=== PATIENT | male | born 1945 | race Caucasian/White ===

== ENCOUNTER 2020-04-14 14:14 | Outpatient (CLI) | payer MEDICARE, OTHER ==
--- NOTE | 2020-04-14 14:50 | RAD ---
2 VIEW CHEST: Date: 04/14/2020 INDICATION: Cough. COMPARISON: 02/19/2017. FINDINGS: There is cardiomegaly with vascular congestion. Interstitial prominence may represent mild diffuse in terstitial congestion. There is new opacification in the left lung base consistent with left effusion and left basilar atele ctasis or consolidation. There is a rounded mass-like density in the left infrahilar region which is new and concerning for parenchymal or hilar mass. IMPRESSION: 1. New opacification of left lung base and a rounded circumscribed mass density in the left infrahil ar region. 2. Mild vascular and interstitial congestion. Recommend further evaluation with chest CT with IV contrast. POS: AGW
== END 2020-04-14 14:15 | disposition home or self-care (01) ==
LOC: BICRAD 14:14
PROVIDERS: ATTEND Family Medicine
DX: R05 Cough (principal); J84.89 Other specified interstitial pulmonary diseases; J98.4 Other disorders of lung; R91.8 Other nonspecific abnormal finding of lung field
CPT/HCPCS: 36415; 71046; 80053; 85025; 85652

== ENCOUNTER 2020-04-28 14:42 | Outpatient (CLI) | payer MEDICARE, OTHER ==
[2020-04-29 04:28] LABS: SARS-CoV-2 MS2 Positive; SARS-CoV-2 N Gene Negative; SARS-CoV-2 S Gene Negative; SARS-CoV-2 by NAA Not Detected (NotDetected); SARS-CoV-2 orf1ab Negative
== END 2020-04-28 14:43 | disposition home or self-care (01) ==
LOC: LABBT 14:42
PROVIDERS: ATTEND Internal Medicine Critical Care Medicine
DX: Z01.812 Encounter for preprocedural laboratory examination (principal); R91.8 Other nonspecific abnormal finding of lung field; Z20.828 Contact with and (suspected) exposure to other viral communicable diseases
CPT/HCPCS: 87635; U0003

== ENCOUNTER 2020-05-02 06:38 | Day surgery (SDC) | payer MEDICARE, OTHER ==
[2020-04-29 13:21] VITALS: BMI 35.9
[2020-05-02] MEDS ORDERED: Lidocaine 1% (PF) 30 ML VIAL ONE ×2 (07:53→07:54)
[2020-05-02] MEDS ORDERED: Dexmedetomidine 200 MCG/2 ML VIAL ONE (09:28)
[2020-05-02] MEDS ORDERED: Morphine 4 MG/ML VIAL ONE (10:23)
--- NOTE | 2020-05-02 10:37 | OP ---
DATE OF PROCEDURE: 05/02/2020 PROCEDURE PERFORMED: Fiberoptic bronchoscopy. PREOPERATIVE DIAGNOSIS: Left upper lobe lung mass. POSTOPERATIVE DIAGNOSIS: Left upper lobe and left lower lobe lung mass. ANESTHESIA: General endotracheal. DESCRIPTION OF PROCEDURE: Informed consent was obtained prior to the procedure. The patient understood the risks involved and agreed to proceed. The patient was brought to the operating room. Time-out was taken prior to the procedure. The patient was intubated with an 8.5 endotracheal tube by KURT. The patient was placed under general endotracheal anesthesia. An Olympus bronchoscope was placed through an adapter into the patient's endotracheal tube while he was on volume-cycled ventilation. The patient's jigna was sharp. There were mucoid secretions present throughout his right lung. His right mainstem bronchus, right upper lobe, right middle lobe, and right lower lobe were free of endobronchial lesions. The left mainstem bronchus was clear up into the bifurcations of left upper lobe, left lower lobe. His left upper lobe was 100% obstructed by endobronchial tumor, which was fleshy, non-necrotic. His left lower lobe was difficult to assess because it was circumferentially narrowed and I could not pass the bronchoscope through that region. The left upper lobe endobronchial tumor was biopsied with forceps approximately 8 times. Brushing was also done. Washings were obtained. The patient had minimal bleeding as a result of the procedure. The patient tolerated the procedure well. This patient has stage IV cancer. Cell type unknown. He will need referral to Oncology for radiation and chemotherapy. Job ID: [id number]
[2020-05-02] MEDS ORDERED: Rocuronium Bromide 10 MG/ML (10ML VIAL) ONE (11:04)
[2020-05-02] MEDS ORDERED: PROPOFOL 200 MG/20 ML VIAL ONE (11:04)
[2020-05-02] MEDS ORDERED: Succinylcholine 200 MG/10 ml SYRINGE FS ONE (11:04)
[2020-05-02] MEDS ORDERED: Ondansetron PF 4 MG/2 ML Vial ONE (11:04)
[2020-05-02] MEDS ORDERED: Lidocaine 1% PF 5 ML VIAL ONE (11:04)
[2020-05-02] MEDS ORDERED: Dexamethasone 20 MG/5 ML VIAL ONE (11:04)
== END 2020-05-02 11:55 | disposition home or self-care (01) ==
LOC: SDC 06:38
PROVIDERS: ATTEND Internal Medicine Critical Care Medicine
PROC: 0BB88ZX Excision of Left Upper Lobe Bronchus, Via Natural or Artificial Opening Endoscopic, Diagnostic (ICD-10-PCS; principal; 2020-05-02)
PROC: 0BDG8ZX Extraction of Left Upper Lung Lobe, Via Natural or Artificial Opening Endoscopic, Diagnostic (ICD-10-PCS; 2020-05-02)
DX: C7A.8 Other malignant neuroendocrine tumors (principal); C80.1 Malignant (primary) neoplasm, unspecified; J44.9 Chronic obstructive pulmonary disease, unspecified; G47.33 Obstructive sleep apnea (adult) (pediatric); I48.91 Unspecified atrial fibrillation; I27.20 Pulmonary hypertension, unspecified; F17.210 Nicotine dependence, cigarettes, uncomplicated; Z79.01 Long term (current) use of anticoagulants; Z79.52 Long term (current) use of systemic steroids; Z79.899 Other long term (current) drug therapy
CPT/HCPCS: 88104; 88112; 88305; 88313; 88341; 88342; J1100; J2001; J2270; J2405; J2704

== ENCOUNTER 2020-05-12 08:09 | Outpatient (CLI) | payer MEDICARE, OTHER ==
--- NOTE | 2020-05-12 09:32 | MRI ---
MRI brain with and without contrast: DATE: 05/12/2020 HISTORY: 74-year-old male with lung cancer. Concern for intracranial metastasis. TECHNIQUE: Multiplanar, multisequence MRI of the brain obtained pre and post IV injection of gadolinium based co ntrast agent. FINDINGS: There is no obstructive hydrocephalus. There is no midline shift or any other evidence of mass effect . There is no extra-axial fluid collection. There are mild chronic ischemic white matter changes due to microvascular atherosclerosis. There is otherwise no major intra-axial signal abnormality, abn ormal enhancement, mass, recent hemorrhage, or restricted diffusion. There is a small, approximately 1 x 1.2 x 0.8 cm meningioma at the left cerebral convexity, abutting the left precentra l gyrus, without causing adjacent vasogenic edema. There is material that is isointense relative to brain parenchyma filling the entire sella turcica, with a superior suprasellar process that engulfs t he entire infundibular stalk, which abuts the optic chiasm. IMPRESSION: 1) enhancing sellar and suprasellar mass. Metastatic disease versus pituitary macroadenoma. Recommend further evaluation with dedicated MRI of the sella with and without contrast. 2) no intra-axial metastatic disease. 3) small meningioma over left cerebral convexity. 4) mild chronic ischemic white matter changes.
[2020-05-12] MEDS ORDERED: Magnevist 469MG/ML 20 ML VIAL ONE (13:53)
== END 2020-05-12 08:10 | disposition home or self-care (01) ==
LOC: MRI 08:09
PROVIDERS: ATTEND Internal Medicine Hematology & Oncology
DX: C34.12 Malignant neoplasm of upper lobe, left bronchus or lung (principal); D32.0 Benign neoplasm of cerebral meninges; I67.82 Cerebral ischemia
CPT/HCPCS: 70553; A9579

== ENCOUNTER 2020-05-12 18:26 | Outpatient (CLI) | payer MEDICARE, OTHER ==
[2020-05-12 19:30] LABS: #Basophils 0.1 10x3/uL (0.0-0.2); #Eosinphils 0.3 10x3/uL (0.0-0.5); #Monocytes 0.6 10x3/uL (0.0-1.1); #Neutrophils 7.5 10x3/uL (1.5-8.4); %Basophils 0.5 % (0.0-2.0); %Eosinophils 2.6 % (0.0-6.0); %Lymphocytes 23.1 % (18.0-47.0); %Monocytes 5.1 % (0.0-10.0); %Neutrophils 68.4 % (40.0-75.0); Anion Gap 16 mmol/L (10-20); BUN (Urea Nitrogen) 16 mg/dL (8.4-25.7); Calc. Creatinine Clearance 0 mL/min (70-130); Calcium 9.2 mg/dL (7.8-10.44); Carbon Dioxide 33 mmol/L (23-31); Chloride 95 mmol/L (98-107); Glucose 92 mg/dL (83-110); Hemoglobin 14.7 g/dL (14.0-18.0); Mean Corpuscular HGB CONC 30.8 G/DL (32.0-36.0); Mean Corpuscular Hemoglobin 27.1 PG (27.0-33.0); Mean Corpuscular Volume 88.2 fl (80.0-100.0); Mean Platelet Volume 8.7 fl (7.4-10.4); Platelet Count 228 10x3/uL (130-400); Potassium 4.4 mmol/L (3.5-5.1); RBC Distribution Width 17.9 % (11.5-14.5); Red Blood Cell (RBC) Count 5.42 10x6/uL (4.40-5.80); Sodium 140 mmol/L (136-145); White Blood Cell (WBC) Count 10.9 10x3/uL (4.5-11.0)
[2020-05-13 03:09] LABS: SARS-CoV-2 MS2 Positive; SARS-CoV-2 N Gene Negative; SARS-CoV-2 S Gene Negative; SARS-CoV-2 by NAA Not Detected (NotDetected); SARS-CoV-2 orf1ab Negative
--- NOTE | 2020-05-13 16:10 | EKG ---
Test Reason : Blood Pressure : / mmHG Vent. Rate : 079 BPM Atrial Rate : 079 BPM P-R Int : 174 ms QRS Dur : 084 ms QT Int : 402 ms P-R-T Axes : 066 058 048 degrees QTc Int : 460 ms Sinus rhythm with Premature atrial complexes Nonspecific ST abnormality Abnormal ECG No previous ECGs available Confirmed by DR. Feliciano WHITE ([id number]) on 05/13/2020 4:09:51 PM Referred By: LOBO Confirmed By:DR. Feliciano WHITE
== END 2020-05-12 18:27 | disposition home or self-care (01) ==
LOC: LABBT 18:26
PROVIDERS: ATTEND Surgery
DX: Z01.818 Encounter for other preprocedural examination (principal); Z20.828 Contact with and (suspected) exposure to other viral communicable diseases; C34.90 Malignant neoplasm of unspecified part of unspecified bronchus or lung
CPT/HCPCS: 80048; 85025; 93005; U0003; 87635; 93010